=== PATIENT | female | born 2000 | race Two or more races ===

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

== ENCOUNTER 2021-10-07 20:36 | Emergency (ER) | payer OTHER ==
[~2021-10-07] VITALS: Ht 162.6 cm; Wt 54.4 kg
[2021-10-08] MEDS ORDERED: IBU400 MG PO (02:14)
== END 2021-10-08 02:55 | disposition home or self-care (01) ==
LOC: ER 20:36 → EMR PED 20:36
DX: S93.401A Sprain of unspecified ligament of right ankle, initial encounter (principal); S59.902A Unspecified injury of left elbow, initial encounter; W17.89XA Other fall from one level to another, initial encounter; Y93.B9 Activity, other involving muscle strengthening exercises; Y92.39 Other specified sports and athletic area as the place of occurrence of the external cause; Y99.9 Unspecified external cause status